=== PATIENT | female | born 1990 | race Caucasian/White ===

== ENCOUNTER 2019-10-04 11:58 | Outpatient (REF) | payer MEDICAID, SELFPAY ==
[2019-10-04 13:42] LABS: Basophils # 0.1 10^3/uL (0.0-0.1); Basophils % 0.3 %; Eosinophils # 0.5 10^3/uL (0.0-0.8); Hematocrit 31.7 % (37.0-47.0); Hemoglobin 10.1 g/dL (11.5-15.3); Lymphocytes # 2.9 10^3/uL (0.8-4.8); Lymphocytes % 16.6 %; Mean Corpuscular HGB Conc 31.9 g/dL (30.0-36.0); Mean Corpuscular Hemoglobin 29.4 pg (28.0-34.0); Mean Corpuscular Volume 92.4 fL (81-99); Mean Platelet Volume 8.8 fL (7.4-10.4); Monocytes # 0.9 10^3/uL (0.2-0.9); Monocytes % 5.4 %; Neutrophils # 12.6 10^3/uL (1.8-7.7); Neutrophils % 72.5 %; Nucleated Red Blood Cells % 0 %; Platelet Count 621 10^3/cmm (130-400); Red Blood Count 3.43 10^6/uL (4.1-5.3); Red Cell Distribution Width 12.9 % (12.1-15.1); White Blood Count 17.4 10^3/uL (4.0-10.0)
[2019-10-04 14:05] LABS: Estmated Average Glucose 100; Hemoglobin A1C 5.1 % (4.0-6.0)
[2019-10-04 14:11] LABS: Alanine Aminotransferase 7 U/L (0-33); Albumin Level 3.2 g/dL (3.5-5.2); Alkaline Phosphatase 137 IU/L (35-105); Anion Gap 19.8 (5-19); Aspartate Amino Transferase 11 U/L (0-32); Blood Urea Nitrogen 31 mg/dL (6-20); Calcium 9.2 mg/dL (8.5-10.5); Carbon Dioxide 20 mmol/L (22-29); Chloride 103 mmol/L (98-107); Chol HDL Ratio 3.86 mg/dL (0.0-4.40); Cholesterol 166 mg/dL (0-200); Globulin 4.2 g/dL (1.3-4.6); Glomerular Filtration Rate 29.7 mL/min (90-130); Glucose 91 mg/dL (74-109); HDL Cholesterol 43 mg/dL (60-100); LDL Cholesterol Calculated 77 mg/dL (50-129); LDL HDL Ratio 1.79 RATIO (0.00-3.22); Potassium 4.8 mmol/L (3.5-5.1); Sodium 138 mmol/L (136-145); Total Bilirubin 0.7 mg/dL (0.15-1.2); Total Protein 7.4 g/dL (6.6-8.7); Triglycerides 231 mg/dL (0-150)
== END 2019-10-04 11:59 | disposition home or self-care (01) ==
LOC: LAB 11:58
PROVIDERS: Visit Provider Dermatology
DX: Z01.89 Encounter for other specified special examinations (principal)
CPT/HCPCS: 80053; 80061; 83036; 85025

== ENCOUNTER → 2020-08-02 13:37 | Outpatient (BNVA) | payer MEDICAID, SELFPAY | PROVIDERS: Visit Provider Nurse Practitioner Family | DX: J02.9 Acute pharyngitis, unspecified (principal); J30.9 Allergic rhinitis, unspecified | CPT/HCPCS: 87071; 87880 ==

== ENCOUNTER 2020-08-14 13:28 | Outpatient (CLI) | payer MEDICAID, SELFPAY ==
--- NOTE | 2020-08-14 13:00 | XR_ITS ---
WS: [id number] ABDOMEN: SUPINE FILM HISTORY: RENAL STONE COMPARISON: 12/14/2016 Increased fecal material throughout the colon. Surgical sutures noted in the LEFT upper abdomen. Prio r cholecystectomy. Right kidney: No renal or ureteral stone identified. Left kidney: No renal or ureteral stone identified. XR/XR KUB [id number] IMPRESSION: No renal or ureteral calcifications identified.
== END 2020-08-14 13:29 | disposition home or self-care (01) ==
LOC: RAD 13:35
PROVIDERS: PCP Family Medicine; Visit Provider Nurse Practitioner Family
DX: N20.0 Calculus of kidney (principal)
CPT/HCPCS: 74018; 81003

== ENCOUNTER 2021-02-17 13:10 | Outpatient (CLI) | payer MEDICAID, SELFPAY ==
--- NOTE | 2021-02-17 12:45 | XR_ITS ---
WS: [id number] Exam: XR KUB [id number] Date/Time of Exam: 02/17/2021 12:45 PM Reason For Exam: N20.9 - Urinary calculus, unspecified No bowel obstruction or free air. No calcifications superimposing the renal silhouettes. Signs of hailey or cholecystectomy and left abdominal surgery. Nonspecific small pelvic calcifications. XR/XR KUB [id number] IMPRESSION: 1. No acute abdominal process. Additional minor findings as above.
== END 2021-02-17 13:11 | disposition home or self-care (01) ==
PROVIDERS: PCP Family Medicine; Visit Provider Urology
DX: N20.9 Urinary calculus, unspecified (principal)
CPT/HCPCS: 74018; 81003

== ENCOUNTER 2022-03-21 12:51 | Emergency (ER) | payer MEDICAID, SELFPAY ==
[2022-03-21 12:58] VITALS: BP 130/81; PULSE 73; RESP 16; TEMP 36.6; O2SAT 99
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
[2022-03-21] MEDS: acetaminophen 500 mg Tablet 1000 MG PO (13:25)
== END 2022-03-21 13:58 | disposition home or self-care (01) ==
PROVIDERS: Emergency Provider Physician Assistant; PCP Family Medicine
DX: S61.213A Laceration without foreign body of left middle finger without damage to nail, initial encounter (principal); F17.210 Nicotine dependence, cigarettes, uncomplicated; W26.0XXA Contact with knife, initial encounter
CPT/HCPCS: 12001; 73140; 99283

== ENCOUNTER 2022-10-04 06:15 | Outpatient (CLI) | payer MEDICAID, SELFPAY ==
--- NOTE | 2022-10-04 | US_ITS ---
WS: [id number] LIMITED OBSTETRICAL ULTRASOUND HISTORY: FIRST TRIMESTER COMPARISON: None available. Presentation: Breech Cervix: Closed and normal length. Placenta: Posterior and fundal. Grade: 0 HEART: FHR of 122 BPM. measurements: BPD = 2.6 cm = 14w4d HC = 10.2 cm = 14w5d AC = 8.0 cm = 14w3d FL = 1.9 cm = 15w4d AGA by ultrasound: 15w0d EVERT by ultrasound: 03/28/2023 US/US OB <= 14 weeks fetus [id number] IMPRESSION: 1. Single intrauterine gestation of 15 weeks 0 days with an EDC of 03/28/2023. 2. Low normal cardiac activity.
== END 2022-10-04 06:16 | disposition home or self-care (01) ==
LOC: RAD 06:17
PROVIDERS: PCP Family Medicine; Visit Provider Family Medicine
DX: Z34.90 Encounter for supervision of normal pregnancy, unspecified, unspecified trimester (principal)
CPT/HCPCS: 76801

== ENCOUNTER 2023-02-14 14:05 | Outpatient (CLI) | payer MEDICAID, SELFPAY ==
[2023-02-14 14:14] VITALS: RESP 17
--- NOTE | 2023-02-14 14:14 | US_ITS ---
WS: [id number] BIOPHYSICAL PROFILE HISTORY: Hypertension COMPARISON: 11/29/2022 position: Transverse Cardiac activity: 136 bpm. Cervix: closed. Placenta: Fundal, no previa or abruption. Placenta grade: 1 Parameters are as follows: Breathin Movement: 2 Tone: 2 Fluid volume: 2 Single vertical pocket 3.4 cm. US/US OB BPP wo NST [id number] IMPRESSION: 1. Biophysical profile score: 8/8. 2. Normal amniotic fluid.
[2023-02-14 14:16] VITALS: BMI 36.3
[2023-02-14 14:22] VITALS: TEMP 36.1
[2023-02-14 14:23] VITALS: BP 120/59; PULSE 71
[2023-02-14 14:43] VITALS: BP 115/66; PULSE 67
[2023-02-14 15:30] VITALS: BP 115/66; PULSE 67
== END 2023-02-14 15:35 | disposition home or self-care (01) ==
LOC: OPOB 14:11 → OBGYN 14:11
PROVIDERS: PCP Family Medicine; Visit Provider Family Medicine
DX: O16.9 Unspecified maternal hypertension, unspecified trimester (principal); Z3A.00 Weeks of gestation of pregnancy not specified
CPT/HCPCS: 59025; 76819; 99211

== ENCOUNTER 2023-02-21 13:57 | Outpatient (CLI) | payer MEDICAID, SELFPAY ==
[2023-02-21 14:00] VITALS: RESP 16
--- NOTE | 2023-02-21 14:00 | US_ITS ---
WS: [id number] BIOPHYSICAL PROFILE AMNIOTIC FLUID HISTORY: Biophysical profile COMPARISON: 02/14/2023 position: Vertex. Cardiac activity: 157 bpm. Cervix: Obscured by the head. Placenta: Anterior and fundal. Placenta grade: 1 Parameters are as follows: Breathin Movement: 2 Tone: 2 Fluid volume: 2 Amniotic Fluid Index: 14.2 cm; single deep vertical pocket 3.3 cm. US/US OB BPP wo NST [id number] IMPRESSION: 1. Biophysical profile score: 8/8. 2. Normal amniotic fluid index.
[2023-02-21 14:05] VITALS: BP 138/84; PULSE 68
[2023-02-21 14:34] VITALS: BP 131/66; PULSE 75
[2023-02-21 14:56] VITALS: BP 138/77; PULSE 74
[2023-02-21 15:06] VITALS: BP 138/77; PULSE 74; RESP 16
== END 2023-02-21 15:07 | disposition home or self-care (01) ==
LOC: OPOB 13:57 → OBGYN 13:58
PROVIDERS: PCP Family Medicine; Visit Provider Family Medicine
DX: Z36.9 Encounter for antenatal screening, unspecified (principal)
CPT/HCPCS: 59025; 76819

== ENCOUNTER 2023-02-28 12:15 | Outpatient (CLI) | payer MEDICAID, SELFPAY ==
[2023-02-28 12:21] VITALS: RESP 17; BMI 36.7
[2023-02-28 12:22] VITALS: BP 140/82; PULSE 78
--- NOTE | 2023-02-28 12:24 | US_ITS ---
WS: [id number] ULTRASOUND OB LIMITED TECHNIQUE: Limited ultrasound examination of the fetus. CLINICAL INFORMATION: elevated blood pressure, COMPARISON: February 21, 2023 FINDINGS: Cervix is long and closed measuring 3.0 cm. Single interuterine gestation. presentation is vertex Placental location is fundal. Placenta grade: 1 heart rate 133 BPM. Normal ELANA 13.3 cm Biophysical profile 8 out of 8. breathin movement: 2 tone: 2 Amniotic fluid: 2 US/US OB BPP NST [id number] IMPRESSION: Normal biophysical profile 8 out of 8
[2023-02-28 12:37] VITALS: BP 117/62; PULSE 65
== END 2023-02-28 13:30 | disposition home or self-care (01) ==
LOC: OPOB 12:18 → OBGYN 12:19
PROVIDERS: PCP Family Medicine; Visit Provider Family Medicine
DX: O13.3 Gestational [pregnancy-induced] hypertension without significant proteinuria, third trimester (principal); Z3A.36 36 weeks gestation of pregnancy
CPT/HCPCS: 59025; 76819; 99211